=== PATIENT | female | born 1960 | race Caucasian/White ===

== ENCOUNTER 2017-01-19 07:08 | Inpatient (IN) | payer BC ==
[2017-01-18 13:21] LABS: HEMATOCRIT 45.4 % (34.6-47.8); HEMOGLOBIN 15.7 g/dL (11.7-16.4); WHITE BLOOD COUNT 9.3 x10^3/uL (3.4-10)
[2017-01-18 13:33] LABS: ASPARTATE AMINO TRANSFERASE 28 U/L (15-37); BLOOD UREA NITROGEN 13 mg/dL (7-18)
[~2017-01-19] VITALS: Ht 165.1 cm; Wt 83.2 kg
[~2017-01-19 07:08] MED LIST: BACITRACIN OINT 500U/GM, 15 GM ONE; BUPIVACAINE/PF 0.5% ONE; CHOL5000 PO; CITA20TA5 PO; EPINEPHRINE 1 MG/ML, 1ML ONE; ESTR1TAB15 PO; FENO145T32 PO; GABA300C10 PO; METF500T4 PO; OXYC-302 PO; THROMBIN 5,000 UNIT VIAL TP ONE; VALS1TAB26 PO
[2017-01-19] MEDS ORDERED: LACTATED RINGERS 1,000 ML IV SCH (07:30)
[2017-01-19 07:31] VITALS: BP 144/88
[2017-01-19] MEDS ORDERED: HYDROmorphone 2 MG/ML, 1ML ONE ×2 (08:22→14:27)
[2017-01-19] MEDS ORDERED: MIDAZOLAM 1 MG/ML, 2ML ONE (08:22)
[2017-01-19] MEDS ORDERED: FENTANYL PF 100 MCG/2ML ONE ×3 (08:22→14:27)
[2017-01-19] MEDS ORDERED: CEFAZOLIN 1,000 MG ONE (10:34)
[2017-01-19] MEDS ORDERED: SUCCINYLCHOLINE 20 MG/ML, 10ML ONE (10:34)
[2017-01-19] MEDS ORDERED: PROPOFOL 10 MG/ML, 20ML ONE (10:34)
[2017-01-19] MEDS ORDERED: ONDANSETRON 2MG/ML, 2ML ONE (10:34)
[2017-01-19] MEDS ORDERED: ROCURONIUM 10 MG/ML ONE (10:34)
[2017-01-19] MEDS ORDERED: hydrALAzine 20 MG/ML, 1ML ONE (10:34)
[2017-01-19] MEDS ORDERED: ONDANSETRON 2MG/ML, 2ML IVPush PRN (12:00)
[2017-01-19] MEDS ORDERED: HYDROmorphone 1 MG/ML, 1ML IV PRN (12:00)
[2017-01-19] MEDS ORDERED: OXYcodone 5 MG/5 ML ORAL.SOL UDC PO PRN (12:00)
[2017-01-19] MEDS ORDERED: ACETAMINOPHEN 325 MG TABLET PO PRN (12:00)
[2017-01-19] MEDS ORDERED: METOCLOPRAMIDE 5 MG/ML, 2ML IV PRN (12:00)
[2017-01-19] MEDS ORDERED: hydrALAzine 20 MG/ML, 1ML IV PRN (12:00)
[2017-01-19] MEDS ORDERED: LABETALOL 5MG/ML, 20ML IV PRN (12:00)
[2017-01-19] MEDS ORDERED: BUPIVACAINE/PF-EPI 0.5% 1:200K ONE (12:12)
[2017-01-19] MEDS ORDERED: METHOCARBAMOL 750 MG TABLET PO PRN (14:00)
[2017-01-19] MEDS ORDERED: PHARMACY MAY ADJ FOR RENAL FX MC PRN (14:00)
[2017-01-19] MEDS ORDERED: BISACODYL 10 MG SUPP PR PRN (14:00)
[2017-01-19] MEDS ORDERED: MAGNESIUM HYDROXIDE 8%, 30ML UDC PO PRN (14:00)
[2017-01-19] MEDS ORDERED: SENNA/DOCUSATE TABLET PO PRN (14:00)
[2017-01-19] MEDS ORDERED: HYDROcodone/APAP 5/325 TABLET PO PRN (14:00)
[2017-01-19] MEDS ORDERED: OXYcodone/APAP 5/325MG TABLET PO PRN (14:00)
[2017-01-19] MEDS ORDERED: PROMETHAZINE 25 MG/ML, 1ML IM PRN (14:00)
[2017-01-19] MEDS ORDERED: DIPHENHYDRAMINE 50 MG/ML, 1ML IVPush PRN (14:00)
[2017-01-19] MEDS ORDERED: OXYcodone 5 MG/5 ML ORAL.SOL UDC ONE (14:27)
[2017-01-19] MEDS ORDERED: ACETAMINOPHEN 650 MG/20.3 ML UDC ONE (14:27)
[2017-01-19] MEDS: FENTANYL PF 100 MCG/2ML IV PRN ×2 (15:09→15:24)
[2017-01-19] MEDS: ONDANSETRON 2MG/ML, 2ML IVPush PRN (17:24)
[2017-01-19] MEDS: NS + 20MEQ KCL 1,000 ML IV SCH (17:55)
[2017-01-19 19:45] VITALS: BP 164/82
[2017-01-19] MEDS: metFORMIN 500 MG TABLET PO SCH (20:01)
[2017-01-19] MEDS: CEFAZOLIN PMX 1GM/50ML 50 ML IVPB SCH (20:01)
[2017-01-19] MEDS: CITALOPRAM 20 MG TABLET PO SCH (20:01)
[2017-01-19] MEDS ORDERED: FENOFIBRATE 145 MG TABLET PO SCH (21:00)
[2017-01-19 23:29] VITALS: BP 152/90
[2017-01-20] MEDS: ONDANSETRON 2MG/ML, 2ML IVPush PRN (00:12)
[2017-01-20] MEDS: morphine SULFATE 10 MG/ML, 1ML IVPush PRN ×2 (01:57→09:00)
[2017-01-20] MEDS: INSULIN REGULAR 100 UNITS/ML, 3ML VIAL SQ-INSULIN PRN ×3 (02:38→12:48)
[2017-01-20 04:31] VITALS: BP 153/84
[2017-01-20] MEDS: CEFAZOLIN PMX 1GM/50ML 50 ML IVPB SCH (04:40)
[2017-01-20] MEDS: NS + 20MEQ KCL 1,000 ML IV SCH ×2 (05:27→15:10)
[2017-01-20 07:18] VITALS: BP 128/82
[2017-01-20] MEDS: CITALOPRAM 20 MG TABLET PO SCH (08:59)
[2017-01-20] MEDS: metFORMIN 500 MG TABLET PO SCH (08:59)
[2017-01-20] MEDS ORDERED: CHOLECALCIFEROL 1,000 UNIT TABLET PO SCH (09:00)
[2017-01-20] MEDS ORDERED: HYDROCHLOROTHIAZIDE 25 MG TABLET PO SCH (09:00)
[2017-01-20] MEDS ORDERED: VALSARTAN 160 MG TABLET PO SCH (09:00)
[2017-01-20] MEDS ORDERED: OXYC-302 PO (15:48)
[2017-01-20] MEDS ORDERED: CEPH-368 PO (15:49)
== END 2017-01-20 16:02 | disposition home or self-care (01) | DRG 460 ==
LOC: ORIP 07:08 → 4NOR 16:27 → DCLOUNGE 01-20 15:24
PROVIDERS: ADMIT Orthopaedic Surgery Orthopaedic Surgery of the Spine; ATTEND Orthopaedic Surgery Orthopaedic Surgery of the Spine
PROC: 0SB20ZZ Excision of Lumbar Vertebral Disc, Open Approach (ICD-10-PCS; 2017-01-19)
PROC: 01NB0ZZ Release Lumbar Nerve, Open Approach (ICD-10-PCS; 2017-01-19)
PROC: 0SH004Z Insertion of Internal Fixation Device into Lumbar Vertebral Joint, Open Approach (ICD-10-PCS; 2017-01-19)
PROC: 00NY0ZZ Release Lumbar Spinal Cord, Open Approach (ICD-10-PCS; 2017-01-19)
PROC: 0SG00AJ Fusion of Lumbar Vertebral Joint with Interbody Fusion Device, Posterior Approach, Anterior Column, Open Approach (ICD-10-PCS; principal; 2017-01-19 09:30)
DX: M51.16 Intervertebral disc disorders with radiculopathy, lumbar region (principal); E11.9 Type 2 diabetes mellitus without complications; M48.06 Spinal stenosis, lumbar region; E78.00 Pure hypercholesterolemia, unspecified; Z98.1 Arthrodesis status; Z88.8 Allergy status to other drugs, medicaments and biological substances; Z90.710 Acquired absence of both cervix and uterus
CPT/HCPCS: 36415; 71020; 72100; 74000; 80053; 81003; 82962; 85025; 93005; J0171; J0690; J1170; J1815; J2250; J2405; J2550; J2704; J3010; J3480; J3490; J0330; J0360; J2270; J7120